=== PATIENT | female | born 1970 | race Two or more races ===

== ENCOUNTER 2018-01-16 18:58 | Emergency (ER) | payer MEDICAID ==
[~2018-01-16] VITALS: Ht 152.4 cm; Wt 77.1 kg
[2018-01-16] MEDS ORDERED: Activated Charcoal 50gm/240ml Btl ORAL ONE ×2 (19:45)
--- NOTE | 2018-01-16 19:45 | Emergency Room Report ---
History of Present Illness General Chief Complaint: Behavioral Complaint Source: Patient Present Illness HPI This is a 47-year-old female with a history of suicidal ideation and depression , who drank a half a bottle of alcohol and did some crystal met amphetamine this afternoon and went to the police station and stated that she has suicidal ideation. She denies any other coingestion. She was waiting in the emergency department. Here she saw several pills of her Abilify. Denies any nausea, vomiting, abdominal pain. No other associated symptoms. Allergies: Coded Allergies: No Known Allergies (Unverified , 01/16/18) Patient History Past Medical History: see triage record Past Surgical History: none Social History: Reports: alcohol use, drug use Last Menstrual Period: 6 months Nursing Documentation-[facility] Hx Hypertension: Yes History Of Psychiatric Problem: Yes Review of Systems All Other Systems: negative except mentioned in HPI Physical Exam Vital Signs Date Time Temp Pulse Resp B/P (MAP) Pulse Ox O2 Delivery O2 Flow Rate FiO2 01/16/18 18:51 98.6 104 16 147/96 92 Room Air General Appearance: no apparent distress, alert, GCS 15, non-toxic ENT: hearing grossly normal, normal pharynx, no angioedema, normal voice Respiratory: chest non-tender, lungs clear, normal breath sounds, speaking full sentences Cardiovascular #1: regular rate, rhythm, no edema Gastrointestinal: normal bowel sounds, non tender, soft, non-distended, no guarding, no rebound Psychiatric: depressed affect Skin: normal inspection, normal color Medical Decision Making Diagnostic Impression: Primary Impression: Substance abuse Additional Impression: Suicidal ideations ER Course This is a potential versus patient shows a concerning acute suicidal ideation, coingestion. I also considered cardiac arrhythmia as well. After discussing with poison control, it was determined that the ingestion was within 1 hour and therefore, activated charcoal was indicated. The patient tolerated this. Blood work was reviewed. The patient will be monitored. And the patient will have psychiatry to evaluate the patient for possible admission. Laboratory Tests Test 01/16/18 19:50 01/16/18 20:15 White Blood Count 9.8 K/UL (4.8-10.8) Red Blood Count 4.49 M/UL (4.20-5.40) Hemoglobin 14.0 G/DL (12.0-16.0) Hematocrit 39.7 % (37.0-47.0) Mean Corpuscular Volume 88 FL (80-99) Mean Corpuscular Hemoglobin 31.1 PG (27.0-31.0) H Mean Corpuscular Hemoglobin Concent 35.2 G/DL (32.0-36.0) Red Cell Distribution Width 11.8 % (11.6-14.8) Platelet Count 298 K/UL (150-450) Mean Platelet Volume 6.5 FL (6.5-10.1) Neutrophils (%) (Auto) 65.8 % (45.0-75.0) Lymphocytes (%) (Auto) 27.4 % (20.0-45.0) Monocytes (%) (Auto) 5.0 % (1.0-10.0) Eosinophils (%) (Auto) 0.6 % (0.0-3.0) Basophils (%) (Auto) 1.2 % (0.0-2.0) Sodium Level 139 MMOL/L (136-145) Potassium Level 3.6 MMOL/L (3.5-5.1) Chloride Level 104 MMOL/L (98-107) Carbon Dioxide Level 23 MMOL/L (21-32) Anion Gap 12 mmol/L (5-15) Blood Urea Nitrogen 11 mg/dL (7-18) Creatinine 0.7 MG/DL (0.55-1.30) Estimate Glomerular Filtration Rate > 60 mL/min (>60) Glucose Level 92 MG/DL (74-106) Calcium Level 8.5 MG/DL (8.5-10.1) Total Bilirubin 0.3 MG/DL (0.2-1.0) Aspartate Amino Transferase (AST) 22 U/L (15-37) Alanine Aminotransferase (ALT) 29 U/L (12-78) Alkaline Phosphatase 87 U/L (46-116) Total Protein 8.5 G/DL (6.4-8.2) H Albumin 3.5 G/DL (3.4-5.0) Globulin 5.0 g/dL Albumin/Globulin Ratio 0.7 (1.0-2.7) L Salicylates Level 0.9 ug/mL (2.8-20) L Acetaminophen Level < 2 MCG/ML (10-30) L Serum Alcohol 33 mg/dL Urine Opiates Screen Negative (NEGATIVE) Urine Barbiturates Screen Negative (NEGATIVE) Phencyclidine (PCP) Screen Negative (NEGATIVE) Urine Amphetamines Screen Positive (NEGATIVE) H Urine Benzodiazepines Screen Negative (NEGATIVE) Urine Cocaine Screen Negative (NEGATIVE) Urine Marijuana (THC) Screen Negative (NEGATIVE) EKG Diagnostic Results EKG Time: 21:14 Rate: normal Rhythm: NSR ST Segments: no acute changes Last Vital Signs Date Time Temp Pulse Resp B/P (MAP) Pulse Ox O2 Delivery O2 Flow Rate FiO2 01/16/18 18:51 98.6 104 16 147/96 92 Room Air Condition: Stable Signed Out To: Dr. Lewis Gomes [facility] Unable to Obtain Active Prescriptions or Reported Meds SANDRA MENESES Jan 16, 2018 19:45
[2018-01-16 20:06] LABS: BASOPHILS % (AUTO) 1.2 % (0.0-2.0); EOSINOPHILS % (AUTO) 0.6 % (0.0-3.0); HEMATOCRIT 39.7 % (37.0-47.0); LYMPHOCYTES % (AUTO) 27.4 % (20.0-45.0); MEAN CORPUSCULAR VOLUME 88 FL (80-99); NEUTROPHILS % (AUTO) 65.8 % (45.0-75.0); PLATELET COUNT 298 K/UL (150-450); RED BLOOD COUNT 4.49 M/UL (4.20-5.40); RED CELL DISTRIBUTION WIDTH 11.8 % (11.6-14.8); WHITE BLOOD COUNT 9.8 K/UL (4.8-10.8)
[2018-01-16 20:22] LABS: ANION GAP 12 mmol/L (5-15); BLOOD UREA NITROGEN 11 mg/dL (7-18); CALCIUM 8.5 MG/DL (8.5-10.1); CARBON DIOXIDE 23 MMOL/L (21-32); CHLORIDE 104 MMOL/L (98-107); CREATININE 0.7 MG/DL (0.55-1.30); POTASSIUM 3.6 MMOL/L (3.5-5.1); SODIUM 139 MMOL/L (136-145)
[2018-01-16 20:27] LABS: ALANINE AMINOTRANSFERASE 29 U/L (12-78); ALBUMIN 3.5 G/DL (3.4-5.0); ALBUMIN/GLOBULIN RATIO 0.7 (1.0-2.7); ALKALINE PHOSPHATASE 87 U/L (46-116); ASPARTATE AMINO TRANSFERASE 22 U/L (15-37); BILIRUBIN,TOTAL 0.3 MG/DL (0.2-1.0)
[2018-01-16 21:00] VITALS: BP 149/93
[2018-01-16 21:24] VITALS: BP 154/98
[2018-01-16 23:15] VITALS: BP 131/76
[2018-01-17 07:42] VITALS: BP 147/81
[2018-01-17 11:14] VITALS: BP 151/93
[2018-01-17 13:40] VITALS: BP 141/70
[2018-01-17 18:07] VITALS: BP 158/70
[2018-01-17 21:14] VITALS: BP 154/87
[2018-01-18 01:38] VITALS: BP 162/88
[2018-01-18 02:21] VITALS: BP 150/80
--- NOTE | 2018-01-20 16:59 | Cardiology Report ---
APPROVED REPORT EKG Measurement Heart [id number] Normal sinus rhythm Minimal voltage criteria for LVH, may be normal variant Borderline ECG
== END 2018-01-18 02:20 ==
LOC: EDBD 18:58 → EMR 19:19
DX: R45.851 Suicidal ideations (principal); F15.10 Other stimulant abuse, uncomplicated; F10.10 Alcohol abuse, uncomplicated; F32.9 Major depressive disorder, single episode, unspecified
CPT/HCPCS: 36415; 80053; 80307; 80329; 85025; 93005; 99284